=== PATIENT | female | born 1970 | race Caucasian/White ===

== ENCOUNTER 2017-12-06 14:36 | Emergency (ER) | payer BC, OTHER ==
[2017-12-06] MEDS ORDERED: SODIUM CHLORIDE 0.9% 1,000 ML IV STA (15:28)
[2017-12-06 15:42] LABS: Basophils # (A) 0.1 k/uL (0-0.2); Basophils % (A) 1 %; Eosinophils # (A) 0.1 k/uL (0-0.7); Eosinophils % (A) 2 %; HCT 44.6 % (34.0-46.0); Hypochromasia Moderate; Lymphocytes # (A) 1.3 k/uL (1.0-4.8); Lymphocytes % (A) 14 %; MCH 20.1 pg (25.0-35.0); MCHC 31.3 g/dL (31.0-37.0); Mean Platelet Volume 7.3; Microcytosis Marked; Monocytes # (A) 0.5 k/uL (0-1.0); Monocytes % (A) 5 %; Neutrophils % (A) 77 %; Platelet Count 231 k/uL (150-450); RBC 6.97 m/uL (3.80-5.40); RDW 15.8 % (11.5-15.5); WBC 9.2 k/uL (3.8-10.6)
--- NOTE | 2017-12-06 15:48 | XR ---
EXAMINATION TYPE: XR chest 2V DATE OF EXAM: 12/06/2017 COMPARISON: Prior chest x-ray 12/31/2009 HISTORY: Dizziness and cough TECHNIQUE: Frontal and lateral views of the chest are obtained. FINDINGS: There is no focal air space opacity, pleural effusion, or pneumothorax seen. The cardiac silhouette size is within normal limits. There are overlying cardiac leads. The osseous structures a re intact. IMPRESSION: No acute cardiopulmonary process.
[2017-12-06 15:49] LABS: Prothrombin Time 9.8 sec (9.0-12.0)
[2017-12-06 15:51] LABS: ALT 65 U/L (9-52); AST 33 U/L (14-36); Albumin 4.1 g/dL (3.5-5.0); Alkaline Phosphatase 78 U/L (38-126); Anion Gap 13 mmol/L; Blood Urea Nitrogen 12 mg/dL (7-17); Calcium 9.9 mg/dL (8.4-10.2); Carbon Dioxide 25 mmol/L (22-30); Chloride 100 mmol/L (98-107); Glucose 186 mg/dL (74-99); Potassium 3.8 mmol/L (3.5-5.1); Sodium 138 mmol/L (137-145); Total Bilirubin 1.3 mg/dL (0.2-1.3); Total Protein 7.2 g/dL (6.3-8.2)
--- NOTE | 2017-12-06 15:53 | ED ---
Dizziness HPI - General Chief Complaint: Dizziness Stated Complaint: Dizzy Time Seen by Provider: 12/06/17 15:15 Source: patient, EMS, RN notes reviewed, old records reviewed Mode of arrival: EMS Limitations: no limitations - History of Present Illness Initial Comments: 47-year-old female with history of dizziness and near syncpopal episode today was primary care provider. She was being evaluated by PCP for upper respiratory symptoms. She has had the symptoms for the past few days. She reports that she had some vision changes, some blurry lines on all for objects that she was sitting.Shows reports that she has a headache. Patient states that she has not been taking her blood pressure and depression medication for the past few weeks. She's denies any specific chest pain. She does complain of upper respiratory symptoms for the past few weeks. She's had a mild cough. Patient reports that her vision changes have subsided upon arriving to the emergency department. She denies any other complaints at this time. - Related Data Home Medications Medication Instructions Recorded Confirmed Atorvastatin [Lipitor] 40 mg PO HS 12/06/17 12/06/17 DULoxetine HCL [Cymbalta] 30 mg PO HS 12/06/17 12/06/17 Empagliflozin/Linagliptin 1 tab PO HS 12/06/17 12/06/17 [Glyxambi 25 mg-5 mg Tablet] Fenofibrate 120 mg PO HS 12/06/17 12/06/17 Insulin Glargine,Hum.rec.anlog 40 unit SQ HS 12/06/17 12/06/17 [Basaglar Kwikpen U-100] Losartan/Hydrochlorothiazide 1 tab PO HS 12/06/17 12/06/17 [Losartan-Hctz 100-25 mg Tab] Multivitamins, Thera [Multivitamin 1 tab PO HS 12/06/17 12/06/17 (formulary)] Ranitidine HCl [Zantac] 150 mg PO BID 12/06/17 12/06/17 azaTHIOprine [Imuran] 250 mg PO HS 12/06/17 12/06/17 Previous Rx's Medication Instructions Recorded Azithromycin [Zithromax Z-pack] 250 mg PO DIRECTED #6 tab 12/06/17 Meclizine [Antivert] 25 mg PO TID #12 tab 12/06/17 Allergies Allergy/AdvReac Type Severity Reaction Status Date / Time meperidine [From Demerol] Allergy Unknown Verified 12/06/17 16:11 Review of Systems ROS Statement: Those systems with pertinent positive or pertinent negative responses have been documented in the HPI. ROS Other: All systems not noted in ROS Statement are negative. Past Medical History Past Medical History: Diabetes Mellitus, Hyperlipidemia, Hypertension Additional Past Medical History / Comment(s): ulcerative colitis History of Any Multi-Drug Resistant Organisms: None Reported Additional Past Surgical History / Comment(s): foot surgery, lap band Past Psychological History: Depression Smoking Status: Never smoker Past Alcohol Use History: None Reported Past Drug Use History: None Reported General Exam - General Exam Comments Initial Comments: This is a 47 year old female, no distress. Patient is obese. Limitations: no limitations General appearance: alert, in no apparent distress Head exam: Present: atraumatic, normocephalic, normal inspection Eye exam: Present: normal appearance, PERRL, EOMI. Absent: scleral icterus, conjunctival injection, periorbital swelling ENT exam: Present: normal exam, normal oropharynx, mucous membranes moist Neck exam: Present: normal inspection. Absent: tenderness, meningismus, lymphadenopathy Respiratory exam: Present: normal lung sounds bilaterally. Absent: respiratory distress, wheezes, rales, rhonchi, stridor Cardiovascular Exam: Present: regular rate, normal rhythm, normal heart sounds. Absent: systolic murmur, diastolic murmur, rubs, gallop, clicks GI/Abdominal exam: Present: soft, normal bowel sounds. Absent: distended, tenderness, guarding, rebound, rigid Extremities exam: Present: normal inspection, full ROM, normal capillary refill. Absent: tenderness, pedal edema, joint swelling, calf tenderness Back exam: Present: normal inspection Neurological exam: Present: alert, oriented X3, CN II-XII intact Psychiatric exam: Present: normal affect, normal mood Skin exam: Present: warm, dry, intact, normal color. Absent: rash Course Vital Signs 12/06/17 12/06/17 12/06/17 14:38 15:00 16:10 Temperature 99.7 F H Pulse Rate 113 H 110 H 103 H Respiratory 20 18 18 Rate Blood Pressure 141/92 138/96 141/82 O2 Sat by Pulse 98 96 96 Oximetry 12/06/17 12/06/17 16:50 18:00 Temperature Pulse Rate 106 H 110 H Respiratory 18 16 Rate Blood Pressure 144/66 136/95 O2 Sat by Pulse 95 95 Oximetry Medical Decision Making - Medical Decision Making 47-year-old female with history of dizziness and near syncpopal episode today was primary care provider. She was being evaluated by PCP for upper respiratory symptoms. She has had the symptoms for the past few days. She reports that she had some vision changes, some blurry lines on all for objects that she was sitting.Shows reports that she has a headache. Patient states that she has not been taking her blood pressure and depression medication for the past few weeks. PAtient lab work was reviewed and within normal limits. EKG reviewed, no significant abnormalities. She relates she has had full cardiac workup inclusing stress test within last 6 months which was normal. CT findings show low attentiation which may be nonspecific, such as demyelinating disease or microvascular ischemia. REcommended MRI follow up. Patient does feel better after migraine cocktail and fluids. They report exposure to mono. Patient heterophile is negative. Discussed EBV titers obtained. Discussed following up with neuro and PCP with CT findings. Discussed return parameters and importance of taking BP meidcation. Patient understands treatment plan and will comply. - Lab Data Result diagrams: 12/06/17 15:14 12/06/17 15:14 Lab Results 12/06/17 12/06/17 12/06/17 Range/Units 15:14 15:14 15:14 WBC 9.2 (3.8-10.6) k/uL RBC 6.97 H (3.80-5.40) m/uL Hgb 14.0 (11.4-16.0) gm/dL Hct 44.6 (34.0-46.0) % MCV 64.0 L (80.0-100.0) fL MCH 20.1 L (25.0-35.0) pg MCHC 31.3 (31.0-37.0) g/dL RDW 15.8 H (11.5-15.5) % Plt Count 231 (150-450) k/uL Neutrophils % 77 % Lymphocytes % 14 % Monocytes % 5 % Eosinophils % 2 % Basophils % 1 % Neutrophils # 7.0 (1.3-7.7) k/uL Lymphocytes # 1.3 (1.0-4.8) k/uL Monocytes # 0.5 (0-1.0) k/uL Eosinophils # 0.1 (0-0.7) k/uL Basophils # 0.1 (0-0.2) k/uL Hypochromasia Moderate Microcytosis Marked PT 9.8 (9.0-12.0) sec INR 1.0 (<1.2) D-Dimer (<0.60) mg/L FEU Sodium 138 (137-145) mmol/L Potassium 3.8 (3.5-5.1) mmol/L Chloride 100 (98-107) mmol/L Carbon Dioxide 25 (22-30) mmol/L Anion Gap 13 mmol/L BUN 12 (7-17) mg/dL Creatinine 0.72 (0.52-1.04) mg/dL Est GFR (MDRD) Af Amer >60 (>60 ml/min/1.73 sqM) Est GFR (MDRD) Non-Af >60 (>60 ml/min/1.73 sqM) Glucose 186 H (74-99) mg/dL Calcium 9.9 (8.4-10.2) mg/dL Total Bilirubin 1.3 (0.2-1.3) mg/dL AST 33 (14-36) U/L ALT 65 H (9-52) U/L Alkaline Phosphatase 78 (38-126) U/L Troponin I (0.000-0.034) ng/mL Total Protein 7.2 (6.3-8.2) g/dL Albumin 4.1 (3.5-5.0) g/dL Heterophile Antibody (Negative) 12/06/17 12/06/17 12/06/17 Range/Units 15:14 15:14 15:40 WBC (3.8-10.6) k/uL RBC (3.80-5.40) m/uL Hgb (11.4-16.0) gm/dL Hct (34.0-46.0) % MCV (80.0-100.0) fL MCH (25.0-35.0) pg MCHC (31.0-37.0) g/dL RDW (11.5-15.5) % Plt Count (150-450) k/uL Neutrophils % % Lymphocytes % % Monocytes % % Eosinophils % % Basophils % % Neutrophils # (1.3-7.7) k/uL Lymphocytes # (1.0-4.8) k/uL Monocytes # (0-1.0) k/uL Eosinophils # (0-0.7) k/uL Basophils # (0-0.2) k/uL Hypochromasia Microcytosis PT (9.0-12.0) sec INR (<1.2) D-Dimer 0.30 (<0.60) mg/L FEU Sodium (137-145) mmol/L Potassium (3.5-5.1) mmol/L Chloride (98-107) mmol/L Carbon Dioxide (22-30) mmol/L Anion Gap mmol/L BUN (7-17) mg/dL Creatinine (0.52-1.04) mg/dL Est GFR (MDRD) Af Amer (>60 ml/min/1.73 sqM) Est GFR (MDRD) Non-Af (>60 ml/min/1.73 sqM) Glucose (74-99) mg/dL Calcium (8.4-10.2) mg/dL Total Bilirubin (0.2-1.3) mg/dL AST (14-36) U/L ALT (9-52) U/L Alkaline Phosphatase (38-126) U/L Troponin I <0.012 (0.000-0.034) ng/mL Total Protein (6.3-8.2) g/dL Albumin (3.5-5.0) g/dL Heterophile Antibody Negative (Negative) - Radiology Data Radiology results: report reviewed No actue intracrainal hemorrhage, mass effect, or midline seen. Periventriclar low attention is nonspecific and may be within demyelinating process or remote microvascular ischemia. MRI is suggested. CXR is negative for any acute process. Disposition Clinical Impression: Upper respiratory infection, Dizziness, Abnormal CT of brain Disposition: HOME SELF-CARE Condition: Good Instructions: Dizziness (ED) Additional Instructions: Patient is to rest, remain hydrated. Take your blood pressure medications. Patient should follow-up with primary care provider and neurologist. Return to the emergency department if any alarming signs or symptoms occur. Prescriptions: Azithromycin [Zithromax Z-pack] 250 mg PO DIRECTED #6 tab Meclizine [Antivert] 25 mg PO TID #12 tab Referrals: Elton Christina MD [Primary Care Provider] - 1-2 days Mandy Hall MD [STAFF PHYSICIAN] - 1-2 days Time of Disposition: 17:44
[2017-12-06] MEDS ORDERED: SODIUM CHLORIDE 0.9% 1,000 ML IV SCH (16:15)
[2017-12-06 16:16] VITALS: TEMP 99.7
[2017-12-06] MEDS ORDERED: ONDANSETRON 4 MG/2 ML VIAL IVP STA (16:16)
--- NOTE | 2017-12-06 16:22 | CT ---
EXAMINATION TYPE: CT brain wo con DATE OF EXAM: 12/06/2017 COMPARISON: NONE HISTORY: Dizziness and near syncope. CT DLP: 984.8 mGycm. Automated Exposure Control for Dose Reduction was Utilized. TECHNIQUE: CT scan of the head is performed without contrast. FINDINGS: There is no acute intracranial hemorrhage, mass effect, or midline shift identified. The ventricles and sulci are within normal limits in size. The globes are intact and the visualized sin uses are clear. IMPRESSION: No acute intracranial hemorrhage, mass effect, or midline shift is seen. Periventricular low attenuation is nonspecific and be seen with demyelinating process or remote microvascular ischem ia. MRI is suggested.
[2017-12-06] MEDS ORDERED: KETOROLAC 30 MG/ML 1 ML VIAL IVP STA (17:16)
[2017-12-06] MEDS ORDERED: ACETAMINOPHEN TAB 500 MG TAB PO STA (17:16)
[2017-12-06] MEDS ORDERED: diphenhydrAMINE 50 MG/ML 1 ML VIAL IVP STA (17:16)
[2017-12-06 18:02] VITALS: BP 136/95; PULSE 110; RESP 16
== END 2017-12-06 18:01 | disposition home or self-care (01) ==
LOC: EC 14:36
DX: R42 Dizziness and giddiness (principal); R93.0 Abnormal findings on diagnostic imaging of skull and head, not elsewhere classified; J06.9 Acute upper respiratory infection, unspecified; E11.9 Type 2 diabetes mellitus without complications; E78.5 Hyperlipidemia, unspecified; I10 Essential (primary) hypertension; F32.9 Major depressive disorder, single episode, unspecified; Z79.4 Long term (current) use of insulin; Z79.899 Other long term (current) drug therapy; Z88.5 Allergy status to narcotic agent
CPT/HCPCS: 99285; 96374; 96375 ×2; 96361 ×2; 36415; 93005; 85379; 80053; 84484; 85025; 85610; 86308; 71046; 70450; J1200; J2405; J1885

== ENCOUNTER 2019-05-23 13:12 | Observation (INO) | payer OTHER ==
[2019-05-23] MEDS ORDERED: NALOXONE 0.4 MG/ML 1 ML VIAL IV PRN (13:50)
[2019-05-23 17:00] LABS: Glucose,Whole Blood 122 mg/dL (75-99)
[2019-05-23] MEDS: ONDANSETRON 4 MG/2 ML VIAL IVP PRN (17:17)
[2019-05-23] MEDS: HYDROmorphone 1 MG/ML 1 ML SYRINGE IV PRN (17:17)
[2019-05-23] MEDS: SODIUM CHLORIDE 0.9% 1,000 ML IV SCH (17:19)
[2019-05-23 17:28] LABS: ALT 27 U/L (9-52); AST 27 U/L (14-36); African American GFR (CKD) >90 (>60 ml/min/1.73 sqM); Albumin 3.8 g/dL (3.5-5.0); Alkaline Phosphatase 83 U/L (38-126); Amylase 43 U/L (30-110); Anion Gap 7 mmol/L; Blood Urea Nitrogen 16 mg/dL (7-17); Calcium 9.1 mg/dL (8.4-10.2); Carbon Dioxide 30 mmol/L (22-30); Chloride 102 mmol/L (98-107); Glucose 121 mg/dL (74-99); Potassium 3.5 mmol/L (3.5-5.1); Sodium 139 mmol/L (137-145); Total Bilirubin 0.4 mg/dL (0.2-1.3); Total Protein 7.1 g/dL (6.3-8.2)
[2019-05-23] MEDS ORDERED: SODIUM CHLORIDE 0.9% 2,000 ML IV ONE (18:29)
--- NOTE | 2019-05-23 18:38 | P.GSHP ---
History of Present Illness H&P Date: 05/23/19 CHIEF COMPLAINT: Acute cholecystitis HISTORY OF PRESENT ILLNESS: The patient is a 49-year-old female who actually went to the clearance ER yesterday after having an acute right upper quadrant and epigastric chest pain at least 10 out of 10. She reports having multiple attacks where she went to separate emergency rooms including [facility] including [facility]. In fact, she had a recent cardiac catheterization April 27 at [facility] which was negative. She reports a family history of cardiac disease. She also reports going to outside facilities where ultrasound of the gallbladder is consistent multiple gallstones. She also had upper endoscopy workup with findings of ulcers. Incidentally she was traveling within the community and had an acute gallbladder attack hence her initial presentation presentation in the office upon referral from her primary care doctor. Upon further workup, patient was found to have acute cholecystitis since her admission. Her history is complicated by ulcerative colitis including history of adjustable gastric band and diabetes type 2 with BMI over 50. PAST MEDICAL HISTORY: See list. PAST SURGICAL HISTORY: See list. MEDICATIONS: See list. ALLERGIES: See list. SOCIAL HISTORY: No illicit drug use FAMILY HISTORY: No reports of Crohn's disease or inflammatory bowel disease REVIEW OF ORGAN SYSTEMS: CONSTITUTIONAL: No fevers or chills. She is 100+ pounds overweight. EYES: Denies any trouble with vision. HEENT: No difficulties with hearing. No nosebleeds. RESPIRATORY: Denies pneumonia. No breathing or dyspnea on exertion. CARDIOVASCULAR: No recent chest pain, palpitations, or recent heart attacks. Recent cardiac catheterization March 2019. GASTROINTESTINAL: Denies fatty food intolerance. Has change in bowel habits and gas bloat. Has GERD. GENITOURINARY: No blood in urine or increased urinary frequency. NEUROLOGICAL: Denies any numbness or tingling along the distal extremities. No seizure disorders or headaches. MUSCULOSKELETAL: Has back pain, stiffness or joint arthritis. SKIN: No current skin cancer. No rash. PSYCHIATRIC: No current depression or suicidal thoughts. ENDOCRINE: Has thyroid disorders. Has blood sugar glucose intolerance. HEME/LYMPHATIC: Denies any lumps and bumps around the neck. No recent deep venous thrombosis. ALLERGY/IMMUNOLOGY: No immunoglobulin therapy. No immune deficiencies. BREAST: Denies current breast lumps, pain or nipple discharge. PHYSICAL EXAM: VITALS: Reviewed CONSTITUTIONAL: Well developed and in no acute distress. EYES: Conjuctivae without sclera icterus. Pupils are equally round and reactive to light. Extraocular movements grossly intact. HEAD, EARS, NOSE, THROAT: Moist buccal mucosa. Head is atraumatic, normocephalic. Hears conversational speech. No nasal drainage. Good dentition. NECK: Supple. No JV distention. No thyroidomegaly. RESPIRATORY: Non-labored respirations and equal bilateral excursions. No gross wheezes. CARDIOVASCULAR: Regular rate and rhythm. Extremities without moderate edema. Palpable 2+ radial pulses. ABDOMEN: Soft, very tender right upper quadrant with peritonitis. LYMPH: No neck lymphadenopathy. No axillary lymphadenopathy. MUSCULOSKELETAL: Gait within normal limits. Range of motion bilateral upper extremities within normal limits. Nail and fingers with good capillary refill. SKIN: Warm and well perfused with good skin turgor. NEUROLOGIC: Cranial nerves I through XII grossly intact. Sensation upper and extremities intact. No focal or lateralizing signs. PSYCH: Appropriate affect. Alert and oriented to person, place and time. Displays appropriate insight. CLINCAL LABS: Reviewed. CBC yesterday reviewed not anemic. RADIOLOGY: Report reviewed. Ultrasound of the abdomen reviewed. RECORDS: ER records reviewed. ASSESSMENT: 1. Acute cholecystitis 2. Right upper quadrant peritonitis. PLAN: 1. Robotic cholecystectomy described 2. DVT prophylaxis 3. Will start antibiotics and fluid hydration for dehydration Past Medical History Past Medical History: Diabetes Mellitus, Hyperlipidemia, Hypertension Additional Past Medical History / Comment(s): ulcerative colitis, pinched nerve in back History of Any Multi-Drug Resistant Organisms: None Reported Past Surgical History: Adenoidectomy, Heart Catheterization, Tonsillectomy Additional Past Surgical History / Comment(s): foot surgery, lap band Past Anesthesia/Blood Transfusion Reactions: No Reported Reaction Past Psychological History: Depression Smoking Status: Never smoker Past Alcohol Use History: None Reported Past Drug Use History: None Reported Medications and Allergies Home Medications Medication Instructions Recorded Confirmed Type Atorvastatin [Lipitor] 40 mg PO HS 12/06/17 05/23/19 History DULoxetine HCL [Cymbalta] 30 mg PO HS 12/06/17 05/23/19 History Insulin Glargine,Hum.rec.anlog 55 unit SQ HS 12/06/17 05/23/19 History [Basaglbisi Reecepen U-100] azaTHIOprine [Imuran] 250 mg PO HS 12/06/17 05/23/19 History Ergocalciferol [Vitamin D2] 50,000 unit PO RIVERA 05/22/19 05/23/19 History Hydrochlorothiazide 25 mg PO DAILY 05/22/19 05/23/19 History Losartan Potassium [Cozaar] 100 mg PO DAILY 05/22/19 05/23/19 History Pantoprazole [Protonix] 40 mg PO DAILY 05/22/19 05/23/19 History amLODIPine [Norvasc] 5 mg PO DAILY 05/22/19 05/23/19 History glipiZIDE [Glucotrol] 5 mg PO AC-BID 05/22/19 05/23/19 History sitaGLIPtin [Januvia] 100 mg PO DAILY 05/22/19 05/23/19 History Allergies Allergy/AdvReac Type Severity Reaction Status Date / Time meperidine [From Demerol] AdvReac Hallucinati Verified 05/23/19 17:08 ons Surgical - Exam Vital Signs Temp Pulse Resp BP 98.1 F 107 H 15 122/87 05/23/19 16:25 05/23/19 16:25 05/23/19 16:25 05/23/19 16:25 Results - Labs 05/23/19 16:56 Abnormal Lab Results - Last 24 Hours (Table) 05/23/19 05/23/19 Range/Units 16:56 16:58 Glucose 121 H (74-99) mg/dL POC Glucose (mg/dL) 122 H (75-99) mg/dL Diabetes panel 05/23/19 Range/Units 16:56 Sodium 139 (137-145) mmol/L Potassium 3.5 (3.5-5.1) mmol/L Chloride 102 (98-107) mmol/L Carbon Dioxide 30 (22-30) mmol/L BUN 16 (7-17) mg/dL Creatinine 0.75 (0.52-1.04) mg/dL Glucose 121 H (74-99) mg/dL Calcium 9.1 (8.4-10.2) mg/dL AST 27 (14-36) U/L ALT 27 (9-52) U/L Alkaline Phosphatase 83 (38-126) U/L Total Protein 7.1 (6.3-8.2) g/dL Albumin 3.8 (3.5-5.0) g/dL Calcium panel 05/23/19 Range/Units 16:56 Calcium 9.1 (8.4-10.2) mg/dL Albumin 3.8 (3.5-5.0) g/dL Pituitary panel 05/23/19 Range/Units 16:56 Sodium 139 (137-145) mmol/L Potassium 3.5 (3.5-5.1) mmol/L Chloride 102 (98-107) mmol/L Carbon Dioxide 30 (22-30) mmol/L BUN 16 (7-17) mg/dL Creatinine 0.75 (0.52-1.04) mg/dL Glucose 121 H (74-99) mg/dL Calcium 9.1 (8.4-10.2) mg/dL Adrenal panel 05/23/19 Range/Units 16:56 Sodium 139 (137-145) mmol/L Potassium 3.5 (3.5-5.1) mmol/L Chloride 102 (98-107) mmol/L Carbon Dioxide 30 (22-30) mmol/L BUN 16 (7-17) mg/dL Creatinine 0.75 (0.52-1.04) mg/dL Glucose 121 H (74-99) mg/dL Calcium 9.1 (8.4-10.2) mg/dL Total Bilirubin 0.4 (0.2-1.3) mg/dL AST 27 (14-36) U/L ALT 27 (9-52) U/L Alkaline Phosphatase 83 (38-126) U/L Total Protein 7.1 (6.3-8.2) g/dL Albumin 3.8 (3.5-5.0) g/dL Assessment and Plan (1) Acute cholecystitis Current Visit: Yes Status: Acute Code(s): K81.0 - ACUTE CHOLECYSTITIS SNOMED Code(s): 91419001 (2) Localized peritonitis Current Visit: Yes Status: Acute Code(s): K65.9 - PERITONITIS, UNSPECIFIED SNOMED Code(s): 80679908 (3) Morbid obesity due to excess calories Current Visit: Yes Status: Acute Code(s): E66.01 - MORBID (SEVERE) OBESITY DUE TO EXCESS CALORIES SNOMED Code(s): 016779486 (4) BMI 50.0-59.9, adult Current Visit: Yes Status: Acute Code(s): Z68.43 - BODY MASS INDEX (BMI) 50- 59.9, ADULT SNOMED Code(s): 643362388 (5) History of adjustable gastric banding Current Visit: Yes Status: Acute Code(s): Z98.84 - BARIATRIC SURGERY STATUS SNOMED Code(s): 958787410 (6) Poorly controlled type 2 diabetes mellitus Current Visit: Yes Status: Acute Code(s): E11.65 - TYPE 2 DIABETES MELLITUS WITH HYPERGLYCEMIA SNOMED Code(s): 86902177 (7) Hypertensive heart disease Current Visit: Yes Status: Acute Code(s): I11.9 - HYPERTENSIVE HEART DISEASE WITHOUT HEART FAILURE SNOMED Code(s): 90532868 (8) Ulcerative colitis Current Visit: Yes Status: Acute Code(s): K51.90 - ULCERATIVE COLITIS, UNSPECIFIED, WITHOUT COMPLICATIONS SNOMED Code(s): 23750368 (9) Gastroesophageal reflux disease Current Visit: Yes Status: Acute Code(s): K21.9 - GASTRO-ESOPHAGEAL REFLUX DISEASE WITHOUT ESOPHAGITIS SNOMED Code(s): 296600263 (10) Depressive disorder Current Visit: Yes Status: Acute Code(s): F32.9 - MAJOR DEPRESSIVE DISORDER, SINGLE EPISODE, UNSPECIFIED SNOMED Code(s): 95502452
[2019-05-23] MEDS: INSULIN ASPART (NovoLOG) 100 UNIT/ML VIAL SQ SCH ×2 (18:50→22:10)
[2019-05-23 20:42] LABS: Glucose,Whole Blood 129 mg/dL (75-99)
[2019-05-23] MEDS ORDERED: PIPERACILLIN-TAZOBACTAM 3.375 GM VIAL ONE (23:35)
[2019-05-23] MEDS ORDERED: SODIUM CHLORIDE 0.9% 100 ML BAG ONE (23:35)
[2019-05-23] MEDS ORDERED: INSULIN DETEMIR (LEVEMIR) 100 UNIT/ML SYR SQ ONE (23:35)
[2019-05-23] MEDS ORDERED: HYDROmorphone 1 MG/ML 1 ML SYRINGE ONE (23:35)
[2019-05-23] MEDS ORDERED: ONDANSETRON 4 MG/2 ML VIAL ONE (23:35)
[2019-05-24 03:47] LABS: Glucose,Whole Blood 182 mg/dL (75-99)
[2019-05-24 03:47] LABS: Glucose,Whole Blood 133 mg/dL (75-99)
[2019-05-24] MEDS: INSULIN DETEMIR (LEVEMIR) 100 UNIT/ML SYR SQ SCH ×2 (05:45→21:05)
[2019-05-24] MEDS: SODIUM CHLORIDE 0.9% 1,000 ML IV SCH ×2 (05:45→18:37)
[2019-05-24] MEDS: PIPERACILLIN-TAZOBACTAM 3.375 GM in SODIUM CHLORIDE 0.9% 100 ML IVPB SCH ×3 (05:45→18:31)
[2019-05-24] MEDS: ONDANSETRON 4 MG/2 ML VIAL IVP PRN ×2 (06:56→17:16)
[2019-05-24] MEDS: HYDROmorphone 1 MG/ML 1 ML SYRINGE IV PRN (06:56)
[2019-05-24] MEDS: PANTOPRAZOLE 40 MG TABLET PO SCH (07:09)
[2019-05-24] MEDS: glipiZIDE 5 MG TAB PO SCH ×2 (07:09→18:37)
[2019-05-24 07:47] LABS: Glucose,Whole Blood 94 mg/dL (75-99)
[2019-05-24] MEDS: INSULIN ASPART (NovoLOG) 100 UNIT/ML VIAL SQ SCH ×4 (08:12→21:04)
[2019-05-24] MEDS: HYDROCHLOROTHIAZIDE 25 MG TAB PO SCH (08:16)
[2019-05-24] MEDS: ENOXAPARIN 30 MG/0.3 ML SYRINGE SQ SCH ×2 (08:16→08:31)
[2019-05-24] MEDS: amLODIPine 5 MG TAB PO SCH (08:16)
[2019-05-24] MEDS: LOSARTAN 50 MG TAB PO SCH (08:17)
[2019-05-24] MEDS: LINAGLIPTIN 5 MG TABLET PO SCH (08:17)
[2019-05-24] MEDS ORDERED: ceFAZolin 3 GM in SODIUM CHLORIDE 0.9% 100 ML IVPB ONE (08:25)
[2019-05-24] MEDS ORDERED: INDOCYANINE GREEN 25 MG VIAL IV STA (08:26)
[2019-05-24 11:45] LABS: Glucose,Whole Blood 83 mg/dL (75-99)
[2019-05-24] MEDS ORDERED: IV FLUID CONTINUATION 1,000 ML IV ONE (13:50)
[2019-05-24 13:53] LABS: Glucose,Whole Blood 94 mg/dL (75-99)
[2019-05-24] MEDS ORDERED: GLYCOPYRROLATE 0.2 MG/ML 2 ML VIAL ONE (14:06)
[2019-05-24] MEDS ORDERED: SUCCINYLCHOLINE CHLORIDE VIAL 200 MG/10 ML VIAL IV ONE (14:06)
[2019-05-24] MEDS ORDERED: ONDANSETRON 4 MG/2 ML VIAL ONE (14:06)
[2019-05-24] MEDS ORDERED: NEOSTIGMINE 1 MG/ML 10 ML VIAL ONE (14:06)
[2019-05-24] MEDS ORDERED: KETOROLAC 30 MG/ML 1 ML VIAL ONE (14:06)
[2019-05-24] MEDS ORDERED: fentaNYL (PF) 50 MCG/ML 2 ML AMP ONE (14:06)
[2019-05-24] MEDS ORDERED: MIDAZOLAM 2 MG/2 ML VIAL ONE (14:06)
[2019-05-24] MEDS ORDERED: INDOCYANINE GREEN 25 MG VIAL IV ONE (14:06)
[2019-05-24] MEDS ORDERED: ROCURONIUM BROMIDE 10 MG/ML 10 ML VIAL IV ONE (14:06)
[2019-05-24] MEDS ORDERED: LIDOCAINE 1% INJ 10MG/ML (20 ML MDV) ONE (14:06)
[2019-05-24] MEDS ORDERED: DEXAMETHASONE SOD PHOS (MDV) 100 MG/10 ML VIAL ONE (14:06)
[2019-05-24] MEDS ORDERED: ePHEDrine SULFATE/0.9% NACL/PF 50 MG/5 ML SYRINGE IV ONE (14:06)
[2019-05-24] MEDS ORDERED: PROPOFOL 10 MG/ML 20 ML VIAL IV ONE (14:06)
[2019-05-24] MEDS ORDERED: LACTATED RINGERS 1,000 ML IV ONE ×2 (14:35→16:22)
[2019-05-24] MEDS ORDERED: BUPIVACAINE (PF) 0.5% 30 ML VIAL SQ ONE (14:39)
[2019-05-24] MEDS ORDERED: METOCLOPRAMIDE 5 MG/ML 2 ML VIAL IVP PRN (16:37)
--- NOTE | 2019-05-24 16:45 | P.OP ---
Date of Procedure: 05/24/19 Description of Procedure: SURGEON: JOURDAN AQUINO MD PREOPERATIVE DIAGNOSES: 1. Right upper quadrant abdominal pain with peritonitis 2. Acute cholecystitis 3. Morbid obesity due to excess calories, BMI 50.8 4. Diabetes type 2, insulin-dependent, poorly controlled 5. Hypertensive heart disease 6. History of adjustable gastric band placement POSTOPERATIVE DIAGNOSES: 1. Right upper quadrant abdominal pain with peritonitis 2. Acute cholecystitis 3. Morbid obesity due to excess calories, BMI 50.8 4. Diabetes type 2, insulin-dependent, poorly controlled 5. Hypertensive heart disease 6. History of adjustable gastric band placement 7. Severe hepatomegaly with fatty liver disease OPERATION: Robotic-assisted da Laquita Xi laparoscopic cholecystectomy, multiport with FIREFLY ESTIMATED BLOOD LOSS: 20 mL. SPECIMENS REMOVED: Gallbladder. COMPLICATIONS: None. OPERATIVE FINDINGS: 1. Acute cholecystitis 2. Severe hepatomegaly adding moderate complexity to the case 3. Console time 79 minutes INDICATIONS: The patient is a 49-year-old female who presents with acute ch olelcystitis. Surgical intervention with a laparoscopic cholecystectomy was described at length including injury to the biliary tree, bleeding, infection, need for further surgery. Informed consent was obtained. Robotic assisted laparoscopic approach was described. Benefits and risks of the procedure including but not limited to bleeding, infection, injury to the biliary tree was described. Informed consent was obtained. DESCRIPTION OF PROCEDURE: Patient was brought to the operating room, placed in supine position. After general induction, the abdomen had been prepped and draped in standard sterile fashion. The robotic da Laquita XI system was primed. After a timeout protocol was performed, the patient had been prepped and draped in standard sterile fashion. The patient was injected with indocyanine green. A 5 mm 0 degrees laparoscopic trocar entry was performed along the left upper quadrant. The abdomen insufflated to 15 mmHg pressure which was tolerated well. Diagnostic laparoscopy demonstrated no injury to bowel viscera or mesentery. The liver surface was unremarkable. Next, two 8 mm robotic ports were placed along the right upper abdomen. The camera 8-mm port was maintained along the epigastrium. Another 8 mm port was placed along the left upper abdominal wall after exchanging the 5 mm port. Please note that the ports were placed at least 10 to 15 cm away from the target anatomy of the gallbladder. The robot was docked along the left lateral abdomen. The patient was repositioned in reverse Trendelenburg position at 22. Using a grasper for arm 3, a grasper for arm 4, including hook cautery for arm 1, the robotic system was docked and primed as described. Instruments were interchanged by the mechanic's assistant including hook cautery, Bovie cautery and clip appliers. I had sat at the console. Severe hepatomegaly was identified completely obscuring the gallbladder. This alone added moderate complexity to the case. Careful dissection was performed with a dome down technique from the fundus to the infundibulum for over one hour. Using a grasper, the cystic duct including the cystic artery was carefully skeletonized. FIREFLY was used to identify the cystic artery and cystic structures. Large PLASTIC clips were used throughout the entire case. Using a clip marketing production manager 2 clips were placed proximally, and 1 clip was placed distally along the cystic duct and then cauterized with the cautery. Again care was taken to avoid any injury to the biliary tree as the common bile duct was clearly visualized during this portion of dissection. Next, the cystic artery was similarly clipped and cauterized. Electro-Bovie cautery was used to remove the gallbladder from the hepatic fossa. Hemostasis was checked and found to be adequate. The robot was undocked. I re-scrubbed into the case. Using a 10 mm Endo Catch bag via the left upper quadrant incision, the specimen was removed from the abdominal cavity. All pneumoperitoneum instruments were evacuated from the abdominal cavity. The incisions were reapproximated using 4-0 Monocryl in an interrupted subcuticular fashion. Fascial defects were less than 8 mm in size. Please note along the trocar sites, local anesthetic was placed as a field block prior to insertion of all instruments. Liquid glue was applied to the skin. At the end of the procedure needle, sponge, and instrument count had been verified correct by the surgical processor. The patient was transferred to postanesthesia care unit in stable condition. Intraoperative films were shared with the patient's family who were very pleased with the level of care.
[2019-05-24 17:29] LABS: Glucose,Whole Blood 125 mg/dL (75-99)
[2019-05-24] MEDS ORDERED: SCOPOLAMINE 1.5MG/72HR PATCH TRANSDERM ONE (17:38)
[2019-05-24] MEDS ORDERED: HYDROmorphone 0.5 MG/0.5 ML SYRINGE IVP PRN (17:38)
[2019-05-24] MEDS ORDERED: DEXAMETHASONE SOD PHOSPHATE 10 MG/ML 1 ML VIAL IV ONE (17:38)
[2019-05-24] MEDS ORDERED: LACTATED RINGERS 1,000 ML IV SCH (17:38)
[2019-05-24] MEDS ORDERED: ONDANSETRON 4 MG/2 ML VIAL IVP ONE (17:38)
[2019-05-24] MEDS: ACETAMINOPHEN TAB 325 MG TAB PO PRN (20:32)
[2019-05-24 20:58] LABS: Glucose,Whole Blood 167 mg/dL (75-99)
[2019-05-25] MEDS: PIPERACILLIN-TAZOBACTAM 3.375 GM in SODIUM CHLORIDE 0.9% 100 ML IVPB SCH ×2 (00:52→08:38)
[2019-05-25] MEDS: SODIUM CHLORIDE 0.9% 1,000 ML IV SCH ×4 (00:53→11:00)
[2019-05-25 02:51] LABS: Glucose,Whole Blood 165 mg/dL (75-99)
[2019-05-25] MEDS: HYDROcodone/APAP 5-325MG 1 EACH TAB PO PRN ×3 (06:41→16:16)
[2019-05-25 07:20] LABS: Glucose,Whole Blood 139 mg/dL (75-99)
[2019-05-25] MEDS: PANTOPRAZOLE 40 MG TABLET PO SCH (07:20)
[2019-05-25] MEDS: glipiZIDE 5 MG TAB PO SCH (07:20)
[2019-05-25] MEDS: INSULIN ASPART (NovoLOG) 100 UNIT/ML VIAL SQ SCH ×2 (07:24→12:47)
[2019-05-25 09:00] VITALS: RESP 16
[2019-05-25] MEDS ORDERED: ENOXAPARIN 40 MG/0.4 ML SYRINGE SQ SCH (09:00)
[2019-05-25] MEDS: HYDROCHLOROTHIAZIDE 25 MG TAB PO SCH (09:10)
[2019-05-25] MEDS: amLODIPine 5 MG TAB PO SCH (09:10)
[2019-05-25] MEDS: LINAGLIPTIN 5 MG TABLET PO SCH (09:10)
[2019-05-25] MEDS: ONDANSETRON 4 MG/2 ML VIAL IVP PRN (09:16)
[2019-05-25] MEDS: LOSARTAN 50 MG TAB PO SCH (09:20)
[2019-05-25 10:24] LABS: Basophils % (A) 0 %; Eosinophils % (A) 0 %; HCT 37.8 % (34.0-46.0); HGB 11.5 gm/dL (11.4-16.0); Hypochromasia Slight; Lymphocytes % (A) 10 %; MCH 20.2 pg (25.0-35.0); MCHC 30.4 g/dL (31.0-37.0); MCV 66.3 fL (80.0-100.0); Mean Platelet Volume 6.7; Microcytosis Marked; Monocytes # (A) 0.5 k/uL (0-1.0); Monocytes % (A) 5 %; Neutrophils # (A) 8.5 k/uL (1.3-7.7); Neutrophils % (A) 84 %; Platelet Count 251 k/uL (150-450); RBC 5.69 m/uL (3.80-5.40); RDW 15.3 % (11.5-15.5); WBC 10.1 k/uL (3.8-10.6)
[2019-05-25 10:26] LABS: ALT 42 U/L (9-52); AST 41 U/L (14-36); African American GFR (CKD) >90 (>60 ml/min/1.73 sqM); Albumin 3.4 g/dL (3.5-5.0); Alkaline Phosphatase 70 U/L (38-126); Anion Gap 9 mmol/L; Blood Urea Nitrogen 11 mg/dL (7-17); Calcium 8.7 mg/dL (8.4-10.2); Carbon Dioxide 25 mmol/L (22-30); Chloride 105 mmol/L (98-107); Glucose 151 mg/dL (74-99); Potassium 3.5 mmol/L (3.5-5.1); Sodium 139 mmol/L (137-145); Total Bilirubin 0.7 mg/dL (0.2-1.3); Total Protein 6.5 g/dL (6.3-8.2)
[2019-05-25 12:09] LABS: Glucose,Whole Blood 146 mg/dL (75-99)
[2019-05-25] MEDS: ACETAMINOPHEN TAB 325 MG TAB PO PRN (12:12)
[2019-05-25 12:56] VITALS: BP 101/67; PULSE 99; TEMP 98.3
[2019-05-25] MEDS ORDERED: DOCUSATE 100 MG CAP PO STA (14:29)
--- NOTE | 2019-05-25 14:33 | P.PN ---
<DayaChasidy Claudio - Last Filed: 05/25/19 14:27> Subjective Progress Note Date: 05/25/19 CHIEF COMPLAINT: Abdominal pain HISTORY OF PRESENT ILLNESS: 49-year-old female who underwent robotic-assisted laparoscopic cholecystectomy. POD #1. Patient examined this morning at the bedside. Spouse present. Patient states her pain is tolerable this morning with IV narcotics. Patient tolerating oral intake. She reports some nausea improved with Zofran. She's been voiding without difficulty. Passing flatus. Patient has been up ambulating. Using incentive spirometry and able to pull 3000 mL. WBC 10.1. Hemoglobin 11.5. PHYSICAL EXAM: VITAL SIGNS: Reviewed. GENERAL: Well-developed in no acute distress. HEENT: No sclera icterus. Extraocular movements grossly intact. Moist buccal mucosa. Head is atraumatic, normocephalic. ABDOMEN: Obese. Soft. Nondistended. Mild surgical tenderness. Surgical sites clean dry and intact without drainage or signs of infection. NEUROLOGIC: Alert and oriented. Cranial nerves II through XII grossly intact. ASSESSMENT: 1. Right upper quadrant abdominal pain with peritonitis 2. Acute cholecystitis 3. Morbid obesity due to excess calories, BMI 50.8 4. Diabetes type 2, insulin-dependent, poorly controlled 5. Hypertensive heart disease 6. History of adjustable gastric band placement 7. Severe hepatomegaly with fatty liver disease PLAN: 1. Continue current diet 2. Activity as tolerated 3. Pain control 4. Incentive spirometry 5. Anticipate discharge home this afternoon Nurse practitioner note has been reviewed by physician. Signing provider agrees with the documented findings, assessment, and plan of care. Objective - Vital Signs Vital signs: Vital Signs Temp 98.3 F 05/25/19 12:01 Pulse 99 05/25/19 12:01 Resp 16 05/25/19 12:01 BP 101/67 05/25/19 12:01 Pulse Ox 97 05/25/19 12:01 Intake & Output 05/24/19 05/25/19 05/25/19 18:59 06:59 18:59 Intake Total 1450 450 120 Output Total 820 Balance 630 450 120 Intake: IV 1450 Oral 450 120 Output: Urine 800 Estimated Blood Loss 20 Other: Voiding Method Toilet Toilet Toilet # Voids 1 - Labs CBC & Chem 7: 05/25/19 09:56 05/25/19 09:56 Labs: Abnormal Lab Results - Last 24 Hours (Table) 05/24/19 05/24/19 05/25/19 Range/Units 17:26 20:56 02:49 RBC (3.80-5.40) m/uL MCV (80.0-100.0) fL MCH (25.0-35.0) pg MCHC (31.0-37.0) g/dL Neutrophils # (1.3-7.7) k/uL Glucose (74-99) mg/dL POC Glucose (mg/dL) 125 H 167 H 165 H (75-99) mg/dL AST (14-36) U/L Albumin (3.5-5.0) g/dL 05/25/19 05/25/19 05/25/19 Range/Units 07:19 09:56 09:56 RBC 5.69 H (3.80-5.40) m/uL MCV 66.3 L (80.0-100.0) fL MCH 20.2 L (25.0-35.0) pg MCHC 30.4 L (31.0-37.0) g/dL Neutrophils # 8.5 H (1.3-7.7) k/uL Glucose 151 H (74-99) mg/dL POC Glucose (mg/dL) 139 H (75-99) mg/dL AST 41 H (14-36) U/L Albumin 3.4 L (3.5-5.0) g/dL 05/25/19 Range/Units 12:06 RBC (3.80-5.40) m/uL MCV (80.0-100.0) fL MCH (25.0-35.0) pg MCHC (31.0-37.0) g/dL Neutrophils # (1.3-7.7) k/uL Glucose (74-99) mg/dL POC Glucose (mg/dL) 146 H (75-99) mg/dL AST (14-36) U/L Albumin (3.5-5.0) g/dL Assessment and Plan (1) Acute cholecystitis Status: Acute Code(s): K81.0 - ACUTE CHOLECYSTITIS SNOMED Code(s): 27864848 (2) BMI 50.0-59.9, adult Status: Acute Code(s): Z68.43 - BODY MASS INDEX (BMI) 50-59.9, ADULT SNOMED Code(s): 477139131 (3) Depressive disorder Status: Acute Code(s): F32.9 - MAJOR DEPRESSIVE DISORDER, SINGLE EPISODE, UNSPECIFIED SNOMED Code(s): 19262299 (4) Gastroesophageal reflux disease Status: Acute Code(s): K21.9 - GASTRO-ESOPHAGEAL REFLUX DISEASE WITHOUT ESOPHAGITIS SNOMED Code(s): 517449871 (5) History of adjustable gastric banding Status: Acute Code(s): Z98.84 - BARIATRIC SURGERY STATUS SNOMED Code(s): 549150142 (6) Hypertensive heart disease Status: Acute Code(s): I11.9 - HYPERTENSIVE HEART DISEASE WITHOUT HEART FAIL URE SNOMED Code(s): 25254532 (7) Localized peritonitis Status: Acute Code(s): K65.9 - PERITONITIS, UNSPECIFIED SNOMED Code(s): 35931664 <Nikki Aguiar N - Last Filed: 05/25/19 19:12> Objective - Vital Signs Vital signs: Vital Signs Temp 98.3 F 05/25/19 12:01 Pulse 99 05/25/19 12:01 Resp 16 05/25/19 12:01 BP 101/67 05/25/19 12:01 Pulse Ox 97 05/25/19 12:01 Intake & Output 05/25/19 05/25/19 05/26/19 06:59 18:59 06:59 Intake Total 450 120 Output Total 800 Balance 450 -680 Intake: Oral 450 120 Output: Urine 800 Other: Voiding Method Toilet Toilet # Voids 1 1 - Labs CBC & Chem 7: 05/25/19 09:56 05/25/19 09:56 Labs: Abnormal Lab Results - Last 24 Hours (Table) 05/24/19 05/25/19 05/25/19 Range/Units 20:56 02:49 07:19 RBC (3.80-5.40) m/uL MCV (80.0-100.0) fL MCH (25.0-35.0) pg MCHC (31.0-37.0) g/dL Neutrophils # (1.3-7.7) k/uL Glucose (74-99) mg/dL POC Glucose (mg/dL) 167 H 165 H 139 H (75-99) mg/dL AST (14-36) U/L Albumin (3.5-5.0) g/dL 05/25/19 05/25/19 05/25/19 Range/Units 09:56 09:56 12:06 RBC 5.69 H (3.80-5.40) m/uL MCV 66.3 L (80.0-100.0) fL MCH 20.2 L (25.0-35.0) pg MCHC 30.4 L (31.0-37.0) g/dL Neutrophils # 8.5 H (1.3-7.7) k/uL Glucose 151 H (74-99) mg/dL POC Glucose (mg/dL) 146 H (75-99) mg/dL AST 41 H (14-36) U/L Albumin 3.4 L (3.5-5.0) g/dL Assessment and Plan (1) Acute cholecystitis Status: Acute Code(s): K81.0 - ACUTE CHOLECYSTITIS SNOMED Code(s): 45344001 (2) Localized peritonitis Status: Acute Code(s): K65.9 - PERITONITIS, UNSPECIFIED SNOMED Code(s): 87917762 (3) Morbid obesity due to excess calories Status: Acute Code(s): E66.01 - MORBID (SEVERE) OBESITY DUE TO EXCESS CALORIES SNOMED Code(s): 463340444 (4) BMI 50.0-59.9, adult Status: Acute Code(s): Z68.43 - BODY MASS INDEX (BMI) 50-59.9, ADULT SNOMED Code(s): 743901735 (5) History of adjustable gastric banding Status: Acute Code(s): Z98.84 - BARIATRIC SURGERY STATUS SNOMED Code(s): 146318566 (6) Poorly controlled type 2 diabetes mellitus Status: Acute Code(s): E11.65 - TYPE 2 DIABETES MELLITUS WITH HYPERGLYCEMIA SNOMED Code(s): 27920119 (7) Hypertensive heart disease Status: Acute Code(s): I11.9 - HYPERTENSIVE HEART DISEASE WITHOUT HEART FAILURE SNOMED Code(s): 65989462 (8) Ulcerative colitis Status: Acute Code(s): K51.90 - ULCERATIVE COLITIS, UNSPECIFIED, WITHOUT COMPLICATIONS SNOMED Code(s): 91039923 (9) Gastroesophageal reflux disease Status: Acute Code(s): K21.9 - GASTRO-ESOPHAGEAL REFLUX DISEASE WITHOUT ESOPHAGITIS SNOMED Code(s): 439543253 (10) Depressive disorder Status: Acute Code(s): F32.9 - MAJOR DEPRESSIVE DISORDER, SINGLE EPISODE, UNSPECIFIED SNOMED Code(s): 55426843
--- NOTE | 2019-05-25 16:11 | P.DS ---
<Chasidy Stapleton - Last Filed: 05/25/19 16:09> Providers Expected date of discharge: 05/25/19 - Discharge Diagnosis(es) (1) Acute cholecystitis Status: Acute (2) BMI 50.0-59.9, adult Status: Acute (3) Depressive disorder Status: Acute (4) Gastroesophageal reflux disease Status: Acute (5) History of adjustable gastric banding Status: Acute (6) Hypertensive heart disease Status: Acute (7) Localized peritonitis Status: Acute Hospital Course: 49-year-old female who underwent robotic-assisted laparoscopic cholecystectomy on 05/24/2019. Patient is doing well postoperatively without any immediate complications. She is tolerating diet. Pain is controlled on oral medications. Vital signs have been stable. She is stable for discharge home today per Dr. Aguiar. Please see EMR for further hospital course details. Discharge diagnosis: 1. Right upper quadrant abdominal pain with peritonitis 2. Acute cholecystitis 3. Morbid obesity due to excess calories, BMI 50.8 4. Diabetes type 2, insulin-dependent, poorly controlled 5. Hypertensive heart disease 6. History of adjustable gastric band placement 7. Severe hepatomegaly with fatty liver disease Nurse practitioner note has been reviewed by physician. Signing provider agrees with the documented findings, assessment, and plan of care. Patient Condition at Discharge: Stable Plan - Discharge Summary Discharge Rx Participant: No New Discharge Prescriptions: New Hydrocodone/Acetaminophen [[employer] 5-325] 1 tab PO Q4HR PRN 3 Days #18 tab PRN Reason: Pain No Action azaTHIOprine [Imuran] 250 mg PO HS Atorvastatin [Lipitor] 40 mg PO HS Insulin Glargine,Hum.rec.anlog [Chidi Johnson U-100] 55 unit SQ HS DULoxetine HCL [Cymbalta] 30 mg PO HS Losartan Potassium [Cozaar] 100 mg PO DAILY Hydrochlorothiazide 25 mg PO DAILY glipiZIDE [Glucotrol] 5 mg PO AC-BID amLODIPine [Norvasc] 5 mg PO DAILY Pantoprazole [Protonix] 40 mg PO DAILY Ergocalciferol [Vitamin D2] 50,000 unit PO RIVERA sitaGLIPtin [Januvia] 100 mg PO DAILY Discharge Medication List Atorvastatin [Lipitor] 40 mg PO HS 12/06/17 [History] DULoxetine HCL [Cymbalta] 30 mg PO HS 01/08/18 [History] Insulin Glargine,Hum.rec.anlog [Basaglar Kwikpen U-100] 55 unit SQ HS 12/06/17 [History] azaTHIOprine [Imuran] 250 mg PO HS 12/06/17 [History] Ergocalciferol [Vitamin D2] 50,000 unit PO RIVERA 05/22/19 [History] Hydrochlorothiazide 25 mg PO DAILY 05/22/19 [History] Losartan Potassium [Cozaar] 100 mg PO DAILY 05/22/19 [History] Pantoprazole [Protonix] 40 mg PO DAILY 05/22/19 [History] amLODIPine [Norvasc] 5 mg PO DAILY 05/22/19 [History] glipiZIDE [Glucotrol] 5 mg PO AC-BID 05/22/19 [History] sitaGLIPtin [Januvia] 100 mg PO DAILY 05/22/19 [History] Hydrocodone/Acetaminophen [[employer] 5-325] 1 tab PO Q4HR PRN 3 Days #18 tab 04/30 06/16 [Rx] Follow up Appointment(s)/Referral(s): Nikki Aguiar MD [STAFF PHYSICIAN] - 06/06/19 4:15 pm (You have an appointment with Dr Aguiar on thursday, June 06, 2019 at 4:15 pm.) Patient Instructions/Handouts: Pain Management (DC), Opioid Safety (DC), Laparoscopic Cholecystectomy (DC), Non-pharmacological Pain Management Therapies for Adults (ED) Activity/Diet/Wound Care/Special Instructions: No driving while taking [employer] No lifting over 10 pounds You may shower. No soaking or tub baths Very light activity until you are reevaluated at your follow up appointment with your surgeon. Drink plenty of fluids, Good handwashing. Call Dr. Aguiar if you develop a fever, chills, difficulty in voiding, or if you have any other questions or concerns. do not pick at the surgical glue, it will come off on its own. Discharge Disposition: HOME SELF-CARE <Nikki Aguiar - Last Filed: 05/25/19 19:12> Providers Date of admission: 05/23/19 15:22 Attending physician: Nikki Aguiar Primary care physician: Elton Christina - Discharge Diagnosis(es) (1) Acute cholecystitis Status: Acute (2) Localized peritonitis Status: Acute (3) Morbid obesity due to excess calories Status: Acute (4) BMI 50.0-59.9, adult Status: Acute (5) History of adjustable gastric banding Status: Acute (6) Poorly controlled type 2 diabetes mellitus Status: Acute (7) Hypertensive heart disease Status: Acute (8) Ulcerative colitis Status: Acute (9) Gastroesophageal reflux disease Status: Acute (10) Depressive disorder Status: Acute
== END 2019-05-25 16:20 | disposition home health service (06) ==
LOC: 4SSUR 15:22 → INTOOBSV 15:22 → 6PED 05-24 17:13 → UNDODISIN 05-25 16:20
PROVIDERS: ADMIT Surgery Plastic and Reconstructive Surgery; ATTEND Surgery Plastic and Reconstructive Surgery
PROC: 0FT44ZZ Resection of Gallbladder, Percutaneous Endoscopic Approach (ICD-10-PCS; principal; 2019-05-24 07:30)
PROC: 8E0W4CZ Robotic Assisted Procedure of Trunk Region, Percutaneous Endoscopic Approach (ICD-10-PCS; principal; 2019-05-24 07:30)
DX: K81.0 Acute cholecystitis (principal); K65.9 Peritonitis, unspecified; Z68.43 Body mass index [BMI] 50.0-59.9, adult; K51.90 Ulcerative colitis, unspecified, without complications; E66.01 Morbid (severe) obesity due to excess calories; E11.9 Type 2 diabetes mellitus without complications; K76.0 Fatty (change of) liver, not elsewhere classified; E11.41 Type 2 diabetes mellitus with diabetic mononeuropathy; E11.65 Type 2 diabetes mellitus with hyperglycemia; E78.5 Hyperlipidemia, unspecified; E86.0 Dehydration; F32.9 Major depressive disorder, single episode, unspecified; I11.9 Hypertensive heart disease without heart failure; K21.0 Gastro-esophageal reflux disease with esophagitis; Z79.4 Long term (current) use of insulin; Z82.49 Family history of ischemic heart disease and other diseases of the circulatory system; Z98.84 Bariatric surgery status; Z88.5 Allergy status to narcotic agent; Z88.8 Allergy status to other drugs, medicaments and biological substances; Z79.899 Other long term (current) drug therapy
CPT/HCPCS: 47562; S2900; 80053; 81025; 82150; 83690; 85025; 88304; 93005; 96372

== ENCOUNTER 2024-11-24 13:30 | Emergency (ER) | payer BC ==
[2024-11-24 13:38] VITALS: BP 157/109; PULSE 99; RESP 18; TEMP 98.6
--- NOTE | 2024-11-24 14:35 | ED ---
Back Pain HPI - General Chief Complaint: Back Pain/Injury Stated Complaint: Back pain,Ino hand numbness Time Seen by Provider: 11/24/24 14:32 Source: patient, RN notes reviewed Limitations: no limitations - History of Present Illness Initial Comments: 54-year-old female with history of ulcerative colitis, diabetes, hypertension, hyperlipidemia presenting to the ER with chief complaint of low back pain x 2 days. Reports constant dull pain in right lower back with radiation down right leg. States right leg is painful and numb. Pain is worse with movement. Denies trauma or injury. Denies fever or IV drug use. Denies saddle anesthesia. She reports she had an episode yesterday where she was on her way to the bathroom and urinated on herself before she mated to the bathroom. - Related Data Home Medications Medication Instructions Recorded Confirmed Atorvastatin [Lipitor] 40 mg PO HS 12/06/17 05/23/19 DULoxetine HCL [Cymbalta] 30 mg PO HS 12/06/17 05/23/19 Insulin Glargine,Hum.rec.anlog 55 unit SQ HS 12/06/17 05/23/19 [Basaglar Kwikpen U-100] azaTHIOprine [Imuran] 250 mg PO HS 12/06/17 05/23/19 Ergocalciferol [Vitamin D2] 50,000 unit PO RIVERA 05/22/19 05/23/19 Losartan Potassium [Cozaar] 100 mg PO DAILY 05/22/19 05/23/19 Pantoprazole [Protonix] 40 mg PO DAILY 05/22/19 05/23/19 amLODIPine [Norvasc] 5 mg PO DAILY 05/22/19 05/23/19 glipiZIDE [Glucotrol] 5 mg PO AC-BID 05/22/19 05/23/19 hydroCHLOROthiazide 25 mg PO DAILY 05/22/19 05/23/19 sitaGLIPtin [Januvia] 100 mg PO DAILY 05/22/19 05/23/19 Previous Rx's Medication Instructions Recorded Hydrocodone/Acetaminophen [[place] 1 tab PO Q4HR PRN 3 Days #18 tab 05/25/19 5-325] Cyclobenzaprine [Flexeril] 10 mg PO TID PRN #15 tab 11/24/24 Ketorolac [Toradol] 10 mg PO Q8HR #15 tab 11/24/24 Lidocaine 4% Patch 1 patch TOPICAL DAILY PRN 7 Days 11/24/24 #7 patch Allergies Allergy/AdvReac Type Severity Reaction Status Date / Time meperidine [From Demerol] AdvReac Hallucinati Verified 11/24/24 13:33 ons metformin AdvReac Abdominal Verified 11/24/24 13:33 Pain Review of Systems ROS Statement: Those systems with pertinent positive or pertinent negative responses have been documented in the HPI. ROS Other: All systems not noted in ROS Statement are negative. Past Medical History Past Medical History: Diabetes Mellitus, Hyperlipidemia, Hypertension Additional Past Medical History / Comment(s): ulcerative colitis, pinched nerve in back History of Any Multi-Drug Resistant Organisms: None Reported Past Surgical History: Adenoidectomy, Heart Catheterization, Tonsillectomy Additional Past Surgical History / Comment(s): foot surgery, lap band Past Anesthesia/Blood Transfusion Reactions: No Reported Reaction Past Psychological History: Depression Smoking Status: Never smoker Past Alcohol Use History: None Reported Past Drug Use History: None Reported General Exam Limitations: no limitations General appearance: alert, in no apparent distress Head exam: Present: atraumatic, normocephalic, normal inspection GI/Abdominal exam: Present: soft, normal bowel sounds. Absent: distended, tenderness, guarding, rebound, rigid Extremities exam: Present: normal inspection, full ROM, normal capillary refill. Absent: tenderness, pedal edema, joint swelling, calf tenderness Back exam: Present: normal inspection, full ROM, other (Full strength and range of motion of bilateral hips, full sensation and DP pulses bilaterally, no saddle anesthesia). Absent: tenderness, CVA tenderness (R), CVA tenderness (L), paraspinal tenderness, vertebral tenderness, rash noted Neurological exam: Present: alert, oriented X3 Psychiatric exam: Present: normal affect, normal mood Skin exam: Present: warm, dry, intact, normal color. Absent: rash Course Vital Signs 11/24/24 13:34 Temperature 98.6 F Pulse Rate 99 Respiratory 18 Rate Blood Pressure 157/109 O2 Sat by Pulse 99 Oximetry Medical Decision Making - Medical Decision Making Was pt. sent in by a medical professional or institution (, PA, TELEGRAPH OFFICE ROUTE AIDE, urgent care, hospital, or longterm...) When possible be specific @ -No Did you speak to anyone other than the patient for history (EMS, parent, family, police, friend...)? What history was obtained from this source @ -No Did you review nursing and triage notes (agree or disagree)? Why? @ -I reviewed and agree with nursing and triage notes Were old charts reviewed (outside hosp., previous admission, EMS record, old EKG, old radiological studies, urgent care reports/EKG's, longterm records)? Report findings @ -No old charts were reviewed Differential Diagnosis (chest pain, altered mental status, abdominal pain women, abdominal pain men, vaginal bleeding, weakness, fever, dyspnea, syncope, headache, dizziness, GI bleed, back pain, seizure, CVA, palpatations, mental health, musculoskeletal)? @ -Differential Back Pain: Strain, zoster, cauda equina syndrome, epidural abscess, vertebral osteomyelitis, discitis, fracture, subluxation, disc herniation, DJD, spinal stenosis, dissection, AAA, pancreatitis, peptic ulcer disease, pyelonephritis, kidney stone, this is not meant to be an all-inclusive list. EKG interpreted by me (3pts min.). @ -None X-rays interpreted by me (1pt min.). @ -None done CT interpreted by me (1pt min.). @ -CT lumbar spine revealed no evidence for acute spinal fracture, multilevel degenerative disc disease and facet arthropathy, most profound at L2-L4 with mild to moderate central canal stenosis secondary to broad-based disc bulges U/S interpreted by me (1pt. min.). @ -None done What testing was considered but not performed or refused? (CT, X-rays, U/S, labs)? Why? @ -None What meds were considered but not given or refused? Why? @ -None Did you discuss the management of the patient with other professionals (professionals i.e. , PA, TELEGRAPH OFFICE ROUTE AIDE, lab, RT, psych nurse, healthcare social worker, busser, teacher, child support case officer, bilingual patient support caseworker)? Give summary @ -No Was smoking cessation discussed for >3mins.? @ -No Was critical care preformed (if so, how long)? @ -No Were there social determinants of health that impacted care today? How? (Homelessness, low income, unemployed, alcoholism, drug addiction, transportation, low edu. Level, literacy, decrease access to med. care, shelter, rehab)? @ -No Was there de-escalation of care discussed even if they declined (Discuss DNR or withdrawal of care, Hospice)? DNR status @ -No What co-morbidities impacted this encounter? (DM, HTN, Smoking, COPD, CAD, Cancer, CVA, ARF, Chemo, Hep., AIDS, mental health diagnosis, sleep apnea, morbid obesity)? @ -None Was patient admitted / discharged? Hospital course, mention meds given and route, prescriptions, significant lab abnormalities, going to OR and other pertinent info. @ -Discharge. This is a 54-year-old female with low back pain x 2 days with radiation down right leg. No red flag symptoms. Patient does reports 1 episode of urge incontinence however otherwise is urinating normally. Neurovascularly intact. Patient is provided with analgesics. CT lumbar spine reveals no acute spinal fracture, there is multilevel degenerative disc disease and facet arthropathic, most pronounced at L2-L4 with mild to moderate central canal stenosis secondary to broad-based disc bulges. Results discussed with patient. Patient reports symptom improvement. Discussed diagnosis of lumbar radiculopathy. Appropriate return precautions and follow-up care discussed. Referral to orthopedics given. Case was discussed with my ED attending Dr. Fisher. Undiagnosed new problem with uncertain prognosis? @ -No Drug Therapy requiring intensive monitoring for toxicity (Heparin, Nitro, Insulin, Cardizem)? @ -No Were any procedures done? @ -No Diagnosis/symptom? @ -Lumbar radiculopathy Acute, or Chronic, or Acute on Chronic? @ -Acute Uncomplicated (without systemic symptoms) or Complicated (systemic symptoms)? @ -Uncomplicated Side effects of treatment? @ -No Exacerbation, Progression, or Severe Exacerbation? @ -No Poses a threat to life or bodily function? How? (Chest pain, [place], [place], pneumonia, PE, COPD, DKA, ARF, appy, cholecystitis, CVA, Diverticulitis, Homicidal, Suicidal, threat to staff... and all critical care pts) @ -Not at this time Disposition Clinical Impression: Lumbar radiculopathy Disposition: HOME SELF-CARE Condition: Stable Instructions (If sedation given, give patient instructions): Lumbar Radiculopathy (ED) Additional Instructions: Take Tylenol threes, Toradol, Flexeril, and lidocaine patches as needed for pain. Follow-up with orthopedics as discussed. Please return to the Emergency Department if symptoms worsen or any other concerns. Prescriptions: Cyclobenzaprine [Flexeril] 10 mg PO TID PRN #15 tab PRN Reason: Muscle Spasm Lidocaine 4% Patch 1 patch TOPICAL DAILY PRN 7 Days #7 patch PRN Reason: Pain Ketorolac [Toradol] 10 mg PO Q8HR #15 tab Is patient prescribed a controlled substance at d/c from ED?: Yes When asked, does pt state using other controlled substances?: No If prescribed controlled substance>3 days was MAPS reviewed?: Prescribed <3 Days If opioid is for acute pain is fill amount 7 days or less?: Yes Referrals: Elton Christina MD [Primary Care Provider] - 1-2 days Time of Disposition: 16:17
[2024-11-24] MEDS: KETOROLAC 15 MG/ML 1 ML VIAL IM STA (14:50)
[2024-11-24] MEDS: ORPHENADRINE 30 MG/ML 2 ML VIAL IM STA (14:50)
[2024-11-24] MEDS: LIDOCAINE 4% PATCH TOPICAL ONE (14:51)
--- NOTE | 2024-11-24 15:19 | CT ---
EXAMINATION TYPE: CT lumbar spine wo con CT DLP: 1535.4 mGycm, Automated exposure control for dose reduction was used. DATE OF EXAM: 11/24/2024 3:10 PM COMPARISON: None. CLINICAL INDICATION:Female, 54 years old with history of low back pain; PHH, Lower back pain, no know n injury TECHNIQUE: Multiple axial images were obtained from the midportion of T11 through the sacroiliac rsoa nts. Soft tissue and bone windows in coronal and sagittal planes were obtained and reviewed. Contrast used: none. Oral contrast used: none. FINDINGS: Alignment: There are 5 lumbar type vertebral bodies within normal alignment. Bone: No evidence of fracture is identified. Multilevel endplate sclerosis and anterior osteophytosi s. Degenerative changes of bilateral SI joints. Discs: Multilevel disc space narrowing with vacuum disc disease. T12-L1: No spinal canal or neural foraminal stenosis is identified. L1-L2: No spinal canal or neural foraminal stenosis is identified. L2-L3: Broad-based disc bulge with calcification. Results in mild to moderate central canal stenosis. Bilateral facet arthropathy. Mild to moderate neural foraminal stenosis. L3-L4: Broad-based disc bulge with calcification. Results in mild to moderate central canal stenosis. Bilateral facet arthropathy. Mild right neural foraminal stenosis. The left neural foramen is patent . L4-L5: Broad-based disc bulge with bilateral facet arthropathy contribute to mild central canal steno sis. Mild left neural foraminal stenosis. The right neural foramen is patent. L5-S1: No spinal canal or neural foraminal stenosis is identified. Other: Partial visualization of gastric lap band device. Suspected fibroid changes of the uterus. IMPRESSION: 1. No evidence for acute spinal fracture. 2. Multilevel degenerative disc disease and facet arthropathy. This is most pronounced at L2-L4 with mild to moderate central canal stenosis secondary to broad-based disc bulges. [facility], , 11/24/2024 3:17 PM
[2024-11-24] MEDS ORDERED: ACET/COD 300 MG/30 MG STARTER PACK 6 TAB BTL PO STA (16:14)
== END 2024-11-24 16:31 | disposition home or self-care (01) ==
LOC: EC 13:30
DX: M54.16 Radiculopathy, lumbar region (principal); Z88.5 Allergy status to narcotic agent
CPT/HCPCS: 72131; 99284; 96372 ×2; J2360; J1885

== ENCOUNTER 2025-03-17 16:02 | Emergency (ER) | payer BC ==
--- NOTE | 2025-03-17 16:21 | ED ---
General Adult HPI - General Chief complaint: Nausea/Vomiting/Diarrhea Stated complaint: SOB, chest pain, lethargy Time Seen by Provider: 03/17/25 16:10 Source: patient, RN notes reviewed Mode of arrival: ambulatory Limitations: no limitations - History of Present Illness Initial comments: This is a 54-year-old female with history of DM, hypertension and hyperlipidemia presenting with for chest pain x 3 days. Patient states pain is mid chest, constant, described as pressure (5/10). Endorses associated shortness of breath, fatigue, dizziness, sweating, fever (100 F) and nausea. Endorses receiving an infusion of a fixed Mab just prior to start of symptoms, which she receives every 8 weeks, this being the second time she has received this in fusion. Denies history of cardiac problems. Endorses father dying of a heart attack at age 53. Endorses use of Tylenol with minimal relief. Patient states she was advised by her PCP to receive lactated Ringer's as an IV infusion instead of sodium chloride. Denies chills, hemoptysis, pleuritic pain, abdominal pain, vomiting/diarrhea, constipation. Onset/Timin -: days(s) Location: chest Radiation: non-radiation Severity scale (1-10): 5 Quality: aching Consistency: constant Improves with: none Worsens with: none Associated Symptoms: chest pain, diaphoresis, nausea/vomiting, shortness of breath, weakness Treatments Prior to Arrival: other (Tylenol) - Related Data Home Medications Medication Instructions Recorded Confirmed Atorvastatin [Lipitor] 40 mg PO HS 12/06/17 05/23/19 DULoxetine HCL [Cymbalta] 30 mg PO HS 12/06/17 05/23/19 Insulin Glargine,Hum.rec.anlog 55 unit SQ HS 12/06/17 05/23/19 [Basaglar Kwikpen U-100] azaTHIOprine [Imuran] 250 mg PO HS 12/06/17 05/23/19 Ergocalciferol [Vitamin D2] 50,000 unit PO RIVERA 05/22/19 05/23/19 Losartan Potassium [Cozaar] 100 mg PO DAILY 05/22/19 05/23/19 Pantoprazole [Protonix] 40 mg PO DAILY 05/22/19 05/23/19 amLODIPine [Norvasc] 5 mg PO DAILY 05/22/19 05/23/19 glipiZIDE [Glucotrol] 5 mg PO AC-BID 05/22/19 05/23/19 hydroCHLOROthiazide 25 mg PO DAILY 05/22/19 05/23/19 sitaGLIPtin [Januvia] 100 mg PO DAILY 05/22/19 05/23/19 Previous Rx's Medication Instructions Recorded Hydrocodone/Acetaminophen [[place] 1 tab PO Q4HR PRN 3 Days #18 tab 05/25/19 5-325] Cyclobenzaprine [Flexeril] 10 mg PO TID PRN #15 tab 11/24/24 Ketorolac [Toradol] 10 mg PO Q8HR #15 tab 11/24/24 Lidocaine 4% Patch 1 patch TOPICAL DAILY PRN 7 Days 11/24/24 #7 patch Allergies Allergy/AdvReac Type Severity Reaction Status Date / Time meperidine [From Demerol] AdvReac Hallucinati Verified 03/17/25 16:07 ons metformin AdvReac Abdominal Verified 03/17/25 16:07 Pain Review of Systems ROS Statement: Those systems with pertinent positive or pertinent negative responses have been documented in the HPI. ROS Other: All systems not noted in ROS Statement are negative. Past Medical History Past Medical History: Diabetes Mellitus, Hyperlipidemia, Hypertension Additional Past Medical History / Comment(s): ulcerative colitis, pinched nerve in back History of Any Multi-Drug Resistant Organisms: None Reported Past Surgical History: Adenoidectomy, Heart Catheterization, Tonsillectomy Additional Past Surgical History / Comment(s): foot surgery, lap band Past Anesthesia/Blood Transfusion Reactions: No Reported Reaction Past Psychological History: Depression Smoking Status: Never smoker Past Alcohol Use History: None Reported Past Drug Use History: None Reported General Exam Limitations: no limitations General appearance: alert, in no apparent distress Head exam: Present: atraumatic, normocephalic, normal inspection Eye exam: Present: normal appearance, PERRL, EOMI. Absent: scleral icterus, conjunctival injection, periorbital swelling ENT exam: Present: normal exam, mucous membranes moist Neck exam: Present: normal inspection. Absent: tenderness, meningismus, lymphadenopathy Respiratory exam: Present: normal lung sounds bilaterally. Absent: respiratory distress, wheezes, rales, rhonchi, stridor, accessory muscle use, decreased breath sounds, prolonged expiratory Cardiovascular Exam: Present: regular rate, normal rhythm, normal heart sounds. Absent: systolic murmur, diastolic murmur, rubs, gallop, clicks GI/Abdominal exam: Present: soft, tenderness (Positive LLQ pain associated with UC), normal bowel sounds. Absent: distended, guarding, rebound, rigid Extremities exam: Present: normal inspection, full ROM, normal capillary refill. Absent: tenderness, pedal edema, joint swelling, calf tenderness Back exam: Present: normal inspection Neurological exam: Present: alert, oriented X3, CN II-XII intact Psychiatric exam: Present: normal affect, normal mood Skin exam: Present: warm, dry, intact, normal color. Absent: rash Course Vital Signs 03/17/25 03/17/25 16:03 17:09 Temperature 97.4 F L Pulse Rate 103 H Pulse Rate [ 77 [employer] Associate ] Respiratory 17 Rate Blood Pressure 145/90 O2 Sat by Pulse 99 Oximetry Medical Decision Making - Medical Decision Making Was pt. sent in by a medical professional or institution (, PA, OFFICE SUPERVISOR, urgent care, hospital, or jail...) When possible be specific @ -No Did you speak to anyone other than the patient for history (EMS, parent, family, police, friend...)? What history was obtained from this source @ -No Did you review nursing and triage notes (agree or disagree)? Why? @ -I reviewed and agree with nursing and triage notes Were old charts reviewed (outside hosp., previous admission, EMS record, old EKG, old radiological studies, urgent care reports/EKG's, jail records)? Report findings @ -No old charts were reviewed Differential Diagnosis (chest pain, altered mental status, abdominal pain women, abdominal pain men, vaginal bleeding, weakness, fever, dyspnea, syncope, headache, dizziness, GI bleed, back pain, seizure, CVA, palpatations, mental health, musculoskeletal)? @ -Differential Chest Pain: Stable Angina, Unstable Angina, STEMI, NSTEMI Aortic Dissection, Pneumothorax, Musculoskeletal, Esophageal Spasm GERD, Cholecystitis, Pancreatitis, Zoster, this is not meant to be an all-inclusive list. EKG interpreted by me (3pts min.). @ -Sinus rhythm with solitary PVC. No ST deviation or T wave inversion. Ventricular rate 89 bpm, RAHUL 156 ms, QRS 92 ms, QTc 408 ms. X-rays interpreted by me (1pt min.). @ -CXR shows no acute cardiopulmonary process CT interpreted by me (1pt min.). @ -None done U/S interpreted by me (1pt. min.). @ -None done What testing was considered but not performed or refused? (CT, X-rays, U/S, labs)? Why? @ -None What meds were considered but not given or refused? Why? @ -None Did you discuss the management of the patient with other professionals (professionals i.e. DrFlorina, PA, OFFICE SUPERVISOR, lab, RT, psych nurse, secondary social studies teacher, balance clerk, teacher, public information officer, bilingual patient support caseworker)? Give summary @ -No Was smoking cessation discussed for >3mins.? @ -No Was critical care preformed (if so, how long)? @ -No Were there social determinants of health that impacted care today? How? (Homelessness, low income, unemployed, alcoholism, drug addiction, transportation, low edu. Level, literacy, decrease access to med. care, [place] [facility], rehab)? @ -No Was there de-escalation of care discussed even if they declined (Discuss DNR or withdrawal of care, Hospice)? DNR status @ -No What co-morbidities impacted this encounter? (DM, HTN, Smoking, COPD, CAD, Cancer, CVA, ARF, Chemo, Hep., AIDS, mental health diagnosis, sleep apnea, morbid obesity)? @ -None Was patient admitted / discharged? Hospital course, mention meds given and route, prescriptions, significant lab abnormalities, going to OR and other pertinent info. @ -CXR unremarkable. Lab work shows iron deficient anemia with patient noting history of thalassemia. Troponin WNL. Patient provided p.o. chewable aspirin, SL nitroglycerin, IV LR and Zofran. Patient notes no improvement with nitroglycerin. Heart score 3. Provided Zofran starter pack prior to discharge. Advised patient to follow-up with PCP in the next 24 to 48 hours and return to ER if experiencing worsening symptoms. Discussed patient with Dr. Gutierrez. Undiagnosed new problem with uncertain prognosis? @ -No Drug Therapy requiring intensive monitoring for toxicity (Heparin, Nitro, Insulin, Cardizem)? @ -No Were any procedures done? @ -No Diagnosis/symptom? @ -Infusion reaction, chest pain Acute, or Chronic, or Acute on Chronic? @ -Acute Uncomplicated (without systemic symptoms) or Complicated (systemic symptoms)? @ -Complicated Side effects of treatment? @ -No Exacerbation, Progression, or Severe Exacerbation? @ -No Poses a threat to life or bodily function? How? (Chest pain, [place], [place], pneumonia, PE, COPD, DKA, ARF, appy, cholecystitis, CVA, Diverticulitis, Homicidal, Suicidal, threat to staff... and all critical care pts) @ -No - Lab Data Result diagrams: 03/17/25 16:38 03/17/25 16:38 Lab Results 03/17/25 03/17/25 03/17/25 Range/Units 16:38 16:38 16:38 WBC 7.33 (4.50-10.00) 10*3/uL RBC 6.68 H (4.10-5.20) 10*6/uL Hgb 13.4 (12.0-15.0) g/dL Hct 43.2 (37.2-46.3) % MCV 64.7 L (80.0-97.0) fL MCH 20.1 L (27.0-32.0) pg MCHC 31.0 L (32.0-37.0) g/dL Plt Count 242 (140-440) 10*3/uL MPV 10.9 (9.5-12.2) fL Immature Gran % (Auto) 0.3 % Neutrophils % 59.2 % Lymphocytes % 26.5 % Monocytes % 10.6 % Eosinophils % 2.6 % Basophils % 0.8 % Immature Gran # 0.02 (0.00-0.04) 10*3/uL Neutrophils # 4.34 (1.80-7.70) 10*3/uL Lymphocytes # 1.94 (0.90-5.00) 10*3/uL Monocytes # 0.78 (0.20-1.00) 10*3/uL Eosinophils # 0.19 (0.04-0.35) 10*3/uL Basophils # 0.06 (0.00-0.10) 10*3/uL Immature Plt Fraction 4.4 (1.1-6.1) % PT 10.9 (10.0-12.5) sec INR 1.0 (<1.2) APTT 24.2 (22.0-30.0) sec Sodium 138 (137-145) mmol/L Potassium 3.5 (3.5-5.1) mmol/L Chloride 105 (98-107) mmol/L Carbon Dioxide 24 (22-30) mmol/L Anion Gap 9 mmol/L BUN 14 (7-17) mg/dL Creatinine 0.72 (0.52-1.04) mg/dL Est GFR (CKD-EPI)AfAm >90 (>60 ml/min/1.73 sqM) Est GFR (CKD-EPI)NonAf >90 (>60 ml/min/1.73 sqM) Glucose 82 (74-99) mg/dL Calcium 9.4 (8.4-10.2) mg/dL Magnesium 2.0 (1.6-2.3) mg/dL Total Bilirubin 1.0 (0.2-1.3) mg/dL AST 20 (14-36) U/L ALT 15 (4-34) U/L Alkaline Phosphatase 59 (38-126) U/L Troponin I (0.000-0.034) ng/mL Total Protein 6.8 (6.3-8.2) g/dL Albumin 3.8 (3.5-5.0) g/dL 03/17/25 Range/Units 16:38 WBC (4.50-10.00) 10*3/uL RBC (4.10-5.20) 10*6/uL Hgb (12.0-15.0) g/dL Hct (37.2-46.3) % MCV (80.0-97.0) fL MCH (27.0-32.0) pg MCHC (32.0-37.0) g/dL Plt Count (140-440) 10*3/uL MPV (9.5-12.2) fL Immature Gran % (Auto) % Neutrophils % % Lymphocytes % % Monocytes % % Eosinophils % % Basophils % % Immature Gran # (0.00-0.04) 10*3/uL Neutrophils # (1.80-7.70) 10*3/uL Lymphocytes # (0.90-5.00) 10*3/uL Monocytes # (0.20-1.00) 10*3/uL Eosinophils # (0.04-0.35) 10*3/uL Basophils # (0.00-0.10) 10*3/uL Immature Plt Fraction (1.1-6.1) % PT (10.0-12.5) sec INR (<1.2) APTT (22.0-30.0) sec Sodium (137-145) mmol/L Potassium (3.5-5.1) mmol/L Chloride (98-107) mmol/L Carbon Dioxide (22-30) mmol/L Anion Gap mmol/L BUN (7-17) mg/dL Creatinine (0.52-1.04) mg/dL Est GFR (CKD-EPI)AfAm (>60 ml/min/1.73 sqM) Est GFR (CKD-EPI)NonAf (>60 ml/min/1.73 sqM) Glucose (74-99) mg/dL Calcium (8.4-10.2) mg/dL Magnesium (1.6-2.3) mg/dL Total Bilirubin (0.2-1.3) mg/dL AST (14-36) U/L ALT (4-34) U/L Alkaline Phosphatase (38-126) U/L Troponin I <0.012 (0.000-0.034) ng/mL Total Protein (6.3-8.2) g/dL Albumin (3.5-5.0) g/dL Disposition Clinical Impression: Chest pain, Infusion reaction Disposition: HOME SELF-CARE Condition: Good Instructions (If sedation given, give patient instructions): Chest Pain (ED), Acute Nausea and Vomiting (ED) Additional Instructions: Follow-up with PCP in the next 24-48 hours. Return to ER if experiencing worsening symptoms. Is patient prescribed a controlled substance at d/c from ED?: No Referrals: Elton Christina MD [Primary Care Provider] - 1-2 days Time of Disposition: 17:32
[2025-03-17] MEDS: ASPIRIN 81 MG PO STA (16:32)
[2025-03-17] MEDS: LACTATED RINGERS 1,000 ML IV ONE (16:33)
[2025-03-17] MEDS: NITROGLYCERIN SL TABS 0.4 MG TAB SUBLINGUAL STA (16:33)
[2025-03-17] MEDS: ONDANSETRON 4 MG/2 ML VIAL IVP STA (16:33)
[2025-03-17 16:48] LABS: Basophils # (A) 0.06 10*3/uL (0.00-0.10); Basophils % (A) 0.8 %; Eosinophils # (A) 0.19 10*3/uL (0.04-0.35); Eosinophils % (A) 2.6 %; HCT 43.2 % (37.2-46.3); HGB 13.4 g/dL (12.0-15.0); Immature Platelet Fraction 4.4 % (1.1-6.1); Lymphocytes # (A) 1.94 10*3/uL (0.90-5.00); Lymphocytes % (A) 26.5 %; MCH 20.1 pg (27.0-32.0); MCV 64.7 fL (80.0-97.0); Mean Platelet Volume 10.9 fL (9.5-12.2); Monocytes # (A) 0.78 10*3/uL (0.20-1.00); Monocytes % (A) 10.6 %; Neutrophils # (A) 4.34 10*3/uL (1.80-7.70); Neutrophils % (A) 59.2 %; Platelet Count 242 10*3/uL (140-440); RBC 6.68 10*6/uL (4.10-5.20); RDW 17.5 % (11.5-14.5); WBC 7.33 10*3/uL (4.50-10.00)
--- NOTE | 2025-03-17 16:51 | XR ---
EXAMINATION TYPE: XR chest 2V DATE OF EXAM: 03/17/2025 4:45 PM COMPARISON: Chest radiograph 12/06/2017. CLINICAL INDICATION: Female, 54 years old with history of Chest Pain; [facility] TECHNIQUE: XR chest 2V Frontal and lateral views of the chest. FINDINGS: Lungs/Pleura: There is no evidence of pleural effusion, focal consolidation, or pneumothorax. Pulmonary vascularity: Unremarkable. Heart/mediastinum: Cardiomediastinal silhouette is unremarkable. Musculoskeletal: No acute osseous pathology. Other findings: None IMPRESSION: No acute cardiopulmonary disease/process. [facility], , 03/17/2025 4:49 PM
[2025-03-17 17:01] LABS: ALT 15 U/L (4-34); AST 20 U/L (14-36); African American GFR (CKD) >90 (>60 ml/min/1.73 sqM); Albumin 3.8 g/dL (3.5-5.0); Alkaline Phosphatase 59 U/L (38-126); Anion Gap 9 mmol/L; Blood Urea Nitrogen 14 mg/dL (7-17); Calcium 9.4 mg/dL (8.4-10.2); Carbon Dioxide 24 mmol/L (22-30); Chloride 105 mmol/L (98-107); Glucose 82 mg/dL (74-99); Non-African American GFR(CKD) >90 (>60 ml/min/1.73 sqM); Potassium 3.5 mmol/L (3.5-5.1); Sodium 138 mmol/L (137-145); Total Protein 6.8 g/dL (6.3-8.2)
[2025-03-17 17:24] LABS: Partial Thromboplastin Time 24.2 sec (22.0-30.0); Prothrombin Time 10.9 sec (10.0-12.5)
[2025-03-17] MEDS: ONDANSETRON 4 MG ODT STARTER PACK 2 TAB BTL PO STA (17:43)
[2025-03-17 17:47] VITALS: BP 114/68; PULSE 78; RESP 18; TEMP 98.2
== END 2025-03-17 17:47 | disposition home or self-care (01) ==
LOC: EC 16:02
DX: T80.90XA Unspecified complication following infusion and therapeutic injection, initial encounter (principal); R07.9 Chest pain, unspecified; Z88.5 Allergy status to narcotic agent
CPT/HCPCS: 36415; 93005; 80053; 83735; 84484; 85025; 85610; 85730; 71046; 99284; 96374; 96361; J2405; S0119